=== PATIENT | female | born 1950 | race Caucasian/White ===

== ENCOUNTER 2022-04-13 16:08 | Emergency (ER) | payer MEDICARE ==
[~2022-04-13] VITALS: Ht 165.1 cm; Wt 58.1 kg
[2022-04-13 16:29] VITALS: BP 124/72
--- NOTE | 2022-04-13 20:09 | NUR ---
Patient discharged to home in stable condition. Written and verbal after care instructions given. Patient verbalizes understanding of instruction.
== END 2022-04-13 19:45 | disposition home or self-care (01) ==
LOC: ER 16:16
DX: S00.03XA Contusion of scalp, initial encounter (principal); R51.9 Headache, unspecified; E11.9 Type 2 diabetes mellitus without complications; W01.0XXA Fall on same level from slipping, tripping and stumbling without subsequent striking against object, initial encounter; Y93.89 Activity, other specified; Y92.89 Other specified places as the place of occurrence of the external cause; Y99.8 Other external cause status
CPT/HCPCS: 70450-TC